=== PATIENT | female | born 1985 | race African-American/Black ===

== ENCOUNTER → 2024-03-20 | Outpatient (REF) | payer OTHER | LOC: CT 15:30 | PROVIDERS: ATTEND Family Medicine | DX: S83.92XA Sprain of unspecified site of left knee, initial encounter (principal) ==

== ENCOUNTER → 2024-03-24 | Outpatient (REF) | payer OTHER | LOC: MRI 13:00 | PROVIDERS: ATTEND Family Medicine | DX: S83.512D Sprain of anterior cruciate ligament of left knee, subsequent encounter (principal) ==